=== PATIENT | female | born 1975 | race African-American/Black ===

== ENCOUNTER 2022-01-23 13:00 | Emergency (ER) | payer OTHER, SELFPAY ==
[2022-01-23 13:02] VITALS: BP 194/124; PULSE 107; RESP 20; TEMP 36.7; O2SAT 99
--- NOTE | 2022-01-23 13:28 | ED.GENADULT ---
HPI - General Adult General Chief complaint: Extremity Problem,Nontraumatic Stated complaint: leg heaviness Time Seen by Provider: 01/23/22 13:27 Source: patient and RN notes reviewed Mode of arrival: ambulatory Limitations: no limitations History of Present Illness HPI narrative: 46 years old -Portuguese female presented to the ED by private car complaining of heaviness of the lower extremity bilaterally for a while, worse over the last 2 days. Patient had history of diabetes, peripheral neuropathy, ran out of Lyrica weeks ago. Also ran out of blood pressure medication months ago. Patient had history of diabetes, hypertension, possible OR, possible stroke, tobacco use, marijuana daily, does not drink. Patient reports taking lisinopril 10 mg, Lyrica 100 mg 3 times daily, carvedilol 12.5 mg once a day Related Data Allergies Allergy/AdvReac Type Severity Reaction Status Date / Time clonidine Allergy Severe Hives / Verified 01/23/22 13:01 Red Face Review of Systems Review of Systems: All systems reviewed & are unremarkable except as noted in HPI and below Exam Narrative: General appearance: Well-developed, well-nourished Skin: Normal color Head: Normocephalic, nontraumatic Eyes: Clear conjunctiva ENT: Oropharynx normal, ears normal, nose normal Neck: Supple, nontender Chest and respiratory: Airway patent, no respiratory distress, no accessory muscle use Heart: Regular rate/rhythm Abdomen: Soft, nontender, no organomegaly, quiet bowel sounds Vascular: Normal peripheral pulses, normal capillary refill. Musculoskeletal: Normal range of motion, nontender back Neurologic: Alert and oriented ?3, [employer] is normal as tested, no gross motor deficit Course Vital Signs Vital signs: Vital Signs Temperature 36.7 C 01/23/22 13:02 Pulse Rate 107 H 01/23/22 13:02 Respiratory Rate 20 01/23/22 13:02 Blood Pressure 194/124 H 01/23/22 13:02 Pulse Oximetry 99 01/23/22 13:02 Oxygen Delivery Room Air 01/23/22 13:02 Temperature 36.7 C 01/23/22 13:02 Pulse Rate 107 H 01/23/22 13:02 Respiratory Rate 20 01/23/22 13:02 Blood Pressure 194/124 H 01/23/22 13:02 Pulse Oximetry 99 01/23/22 13:02 Oxygen Delivery Room Air 01/23/22 13:02 Medical Decision Making Vital Signs Vital Signs: Vital Signs Temperature 36.7 C 01/23/22 13:02 Pulse Rate 107 H 01/23/22 13:02 Respiratory Rate 20 01/23/22 13:02 Blood Pressure 194/124 H 01/23/22 13:02 Pulse Oximetry 99 01/23/22 13:02 Oxygen Delivery Room Air 01/23/22 13:02 Temperature 36.7 C 01/23/22 13:02 Pulse Rate 107 H 01/23/22 13:02 Respiratory Rate 20 01/23/22 13:02 Blood Pressure 194/124 H 01/23/22 13:02 Pulse Oximetry 99 01/23/22 13:02 Oxygen Delivery Room Air 01/23/22 13:02 Lab Data Result diagrams: 01/23/22 14:24 01/23/22 14:24 Labs: Lab Results 01/23/22 01/23/22 01/23/22 Range/Units 14:24 14:24 14:24 WBC 8.3 (4.5-10.0) K/mm3 RBC 4.50 (4.2-5.4) M/mm3 Hgb 13.2 (12.0-15.0) g/dL Hct 40.2 (37.0-47.0) % MCV 89.3 (80-100) fl MCH 29.3 (26-34) pg MCHC 32.8 (32-36) g/dl RDW 15.9 H (11.5-14.5) % Plt Count 338 (150-375) k/mm3 MPV 9.3 (7.4-10.4) fl Immature Gran % (Auto) 0.1 (0-0.5) % Neut % (Auto) 34.7 L (45.5-73.1) % Lymph % (Auto) 58.1 H (18.3-44.2) % C[place]ay % (Auto) 6.0 (2.6-8.5) % Eos % (Auto) 0.5 (0-4.4) % Baso % (Auto) 0.6 (0.2-1.2) % Lymph # (Auto) 4.83 H (0.9-3.2) K/mm3 [place]ay # (Auto) 0.5 (0.1-0.6) K/mm3 Eos # (Auto) 0.0 (0-0.3) K/mm3 Baso # (Auto) 0.1 (0.0-0.1) K/mm3 Abs Immat Gran (auto) 0
[2022-01-23 14:34] LABS: Basophils Absolute Auto 0.1 K/mm3 (0.0-0.1); Basophils Percent Auto 0.6 % (0.2-1.2); Eosinophils Percent Auto 0.5 % (0-4.4); Hematocrit 40.2 % (37.0-47.0); Hemoglobin 13.2 g/dL (12.0-15.0); Immature Granulocyte Absolute 0.01 K/mm3 (0.00-0.031); Immature Granulocyte Percent A 0.1 % (0-0.5); Lymphocytes Absolute Auto 4.83 K/mm3 (0.9-3.2); Lymphocytes Percent Auto 58.1 % (18.3-44.2); Mean Corpuscular HGB Conc 32.8 g/dl (32-36); Mean Corpuscular Hemoglobin 29.3 pg (26-34); Mean Corpuscular Volume 89.3 fl (80-100); Mean Platelet Volume 9.3 fl (7.4-10.4); Monocytes Absolute Auto 0.5 K/mm3 (0.1-0.6); Neutrophils Absolute Auto 2.9 K/mm3 (1.3-6.7); Neutrophils Percent Auto 34.7 % (45.5-73.1); Platelet Count Result 338 k/mm3 (150-375); Red Cell Distribution Width 15.9 % (11.5-14.5); White Blood Count 8.3 K/mm3 (4.5-10.0)
--- NOTE | 2022-01-23 14:37 | PC.NURSE ---
pt unable to provide urine sample at this time. pt declining straight cath.
[2022-01-23 14:46] LABS: Alanine Aminotransferase 21 U/L (6-35); Albumin Level 4.7 g/dL (3.5-5.1); Alkaline Phosphatase 100 U/L (38-126); Anion Gap 8 mmol/L (8-16); Aspartate Amino Transferase 25 U/L (14-36); Bilirubin,Total 0.5 mg/dL (0.2-1.3); Blood Urea Nitrogen 16 mg/dL (7-17); Calcium 9.1 mg/dL (8.4-10.2); Carbon Dioxide 25 mmol/L (22-30); Chloride 110 mmol/L (98-107); Estimated CRCL calculation 71 ml/min; Estimated Glomerular Filt Rate > 60; Glucose 88 mg/dL (65-110); Potassium 3.7 mmol/L (3.4-5.0); Sodium 143 mmol/L (137-145)
[2022-01-23 14:47] LABS: Prothrombin Time 12.6 Seconds (11.1-14.7)
[2022-01-23 14:48] LABS: Partial Thromboplastin Time 30.3 SECONDS (22.3-36.8)
[2022-01-23 15:33] LABS: D Dimer 0.51 ug/mL (<0.48)
[2022-01-23 15:50] LABS: Appearance Urine Slightly Cloudy (Clear); Bilirubin Urine Negative (Negative); Color Urine Yellow (Yellow); Glucose Urine UA 3+ mg/dL (Negative); Ketones Urine Negative (Negative); Leukocyte Esterase Ur Negative LEU/UL (Negative); Nitrate Urine Negative (Negative); Protein Urine Trace mg/dL (Negative); Specific Grav Ur 1.015 (1.001-1.035); Urobilinogen Urine 0.2 mg/dL (<2.0); pH Urine 5.5 (5.0-9.0)
[2022-01-23 15:53] LABS: Bacteria Urine Trace /hpf; Mucus Urine Rare /lpf; Squamous Epithelial Cell Urine Many /hpf (Few); WBC Urine 0-3 /hpf
[2022-01-23 15:55] LABS: Add Urine Microscopic? YES; Blood Urine Trace-Intact (Negative)
[2022-01-23 16:35] VITALS: BP 159/98; PULSE 87; RESP 17; O2SAT 98
== END 2022-01-23 16:37 | disposition home or self-care (01) ==
PROVIDERS: Emergency Provider Emergency Medicine; PCP Internal Medicine Infectious Disease
DX: E11.42 Type 2 diabetes mellitus with diabetic polyneuropathy (principal); I10 Essential (primary) hypertension; T42.6X6A Underdosing of other antiepileptic and sedative-hypnotic drugs, initial encounter; T46.5X6A Underdosing of other antihypertensive drugs, initial encounter; Z91.128 Patient's intentional underdosing of medication regimen for other reason; F17.200 Nicotine dependence, unspecified, uncomplicated
CPT/HCPCS: 36415; 80053; 81001; 85025; 85380; 85610; 85730; 99283